=== PATIENT | female | born 1995 | race Caucasian/White ===

== ENCOUNTER 2019-07-26 11:45 | Outpatient (CLI) | payer OTHER ==
[2019-07-26 18:13] LABS: BASOPHILS % (AUTO) 0.6 %; EOSINOPHILS # (AUTO) 0.1 10^3/uL (0.0-0.7); EOSINOPHILS % (AUTO) 1.3 %; HGB - HEMOGLOBIN 10.7 g/dL (12.0-16.0); LYMPHOCYTES # (AUTO) 1.9 10^3/uL (1.5-3.5); LYMPHOCYTES % (AUTO) 27.7 %; MEAN CORPUSCULAR HEMOGLOBIN 22.8 pg (27.0-31.0); MEAN CORPUSCULAR HGB CONC 28.8 g/dL (32.0-36.0); MEAN CORPUSCULAR VOLUME 79.1 fL (81.0-99.0); MEAN PLATELET VOLUME 10.2 fL (7.9-10.8); MONOCYTES # (AUTO) 0.4 10^3/uL (0.0-1.0); MONOCYTES % (AUTO) 6.5 %; NEUTROPHILS # (AUTO) 4.3 10^3/uL (1.5-6.6); NEUTROPHILS % (AUTO) 63.8 %; PLT - PLATELET COUNT 372 10^3/uL (130-450); RED CELL DISTRIBUTION WIDTH 18.5 % (12.0-15.0); WHITE BLOOD COUNT 6.7 x10^3/uL (4.8-10.8)
[2019-07-26 18:33] LABS: % IRON SATURATION 6 % (20-50); IRON 27 ug/dL (28-170); TOTAL IRON BINDING CAPACITY 454 ug/dL (250-450); TRANSFERRIN 324 mg/dL (192-382)
[2019-07-26 18:48] LABS: FERRITIN 5.3 ng/mL (11.0-306.8)
[2019-07-26 18:53] LABS: FOLATE 17.34 ng/mL (5.90 - >24.8)
[2019-07-26 19:44] LABS: PLATELET ESTIMATE, MANUAL NORMAL (130-450,000) (NORMAL); PLATELET MORPHOLOGY NORMAL APPEARANCE (NORMAL)
== END 2019-07-26 23:59 | disposition home or self-care (01) ==
LOC: LAB.WCP 11:45
PROVIDERS: ATTEND Physician Assistant Medical
DX: D64.9 Anemia, unspecified (principal)
CPT/HCPCS: 36415; 82607; 82728; 82746; 83540; 84466; 85025